=== PATIENT | male | born 1930 | race African-American/Black ===

== ENCOUNTER → 2016-10-29 | Outpatient (CLI) | payer OTHER, BC ==
[~2016-10-29] VITALS: Ht 180.3 cm; Wt 71.2 kg
[~2016-10-29] MED LIST: ASA81BEC PO; ASPIRIN325 OR; CARDIZEM CD180 MG PO; CASODEX 50 MG T50 MG PO; FLOMAX PO; MOBIC7.5 MG PO; PROTONIX40 M2 PO; TAMBOCOR 100 M100 M1 PO; TOPROL XL50 MG PO; TRAMADOL 50 MG50 MG PO
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
[2016-10-29 10:54] VITALS: BP 118/65
== END | disposition home or self-care (01) ==
LOC: PAIN 06:57
DX: M70.62 Trochanteric bursitis, left hip (principal); M48.06 Spinal stenosis, lumbar region; K21.9 Gastro-esophageal reflux disease without esophagitis; Z85.46 Personal history of malignant neoplasm of prostate